=== PATIENT | female | born 1960 ===

== ENCOUNTER 2024-01-12 07:28 | Day surgery (SDC) | payer OTHER ==
[2024-01-04 08:11] LABS: URINE APPEARANCE Clear; URINE BILIRRUBIN Negative (NEGATIVE); URINE BLOOD Negative; URINE COLOR Yellow; URINE KETONE Negative (NEGATIVE); URINE LEUKOCYTE Negative; URINE NITRATE Negative; URINE PROTEIN Negative (NEGATIVE); URINE UROBILINOGEN 0.2 E.U./dl
[2024-01-04 08:13] LABS: URINE BACTERIA 143.6 uL (0.0-1933); URINE EPITHELIAL CELLS 5.2 uL (0.0-38.8); URINE RBC 3.5 uL (0.0-20.8); URINE WBC 6.6 uL (0.0-23.2)
[2024-01-04 08:13] LABS: HEMATOCRIT 42.3 % (36.0-45.00); HEMOGLOBIN 14.5 g/dL (12.0-15.00); MEAN CELL VOLUME 91.5 fL (80.00-100.00); MEAN CORPUSCULAR HEMOGLOBIN 31.3 pg (27.00-32.0); MEAN CORPUSCULAR HGB CONC 34.2 g/dl (32.0-36.0); PLATELET COUNT 149 K/uL (150-450); RED BLOOD COUNT 4.62 M/uL (4.00-6.00); RED CELL DISTRIBUTION WIDTH 14.9 % (11.5-14.5)
[2024-01-04 08:16] LABS: URINE GLUCOSE >=1000 MG/DL (NEGATIVE)
[2024-01-04 08:36] LABS: CALCIUM 10.3 mg/dL (8.5-10.1); CREATININE SERUM 0.9 mg/dL (0.55-1.02); GFR 62.84; POTASSIUM 4.01 mEq/L (3.5-5.1)
[2024-01-04 08:45] LABS: INR 1.01; PARTIAL THROMBOPLASTIN TIME 26.5 SECONDS (22.0-34.0); PROTHROMBIN TIME 10.6 SECONDS (9.0-11.5)
[~2024-01-12] VITALS: Ht 157.5 cm; Wt 90.7 kg
[~2024-01-12 07:28] MED LIST: DIETHYLPROPION25 MG PO; LEVO-T25 MCG PO; MOUNJARO2.5 MG/0.5; ONDANSETRON HCL4 MG PO; TELMISARTAN-HC1 EAC2 PO; ZETIA10 MG PO; ZOCOR40 MG PO
[2024-01-12] MEDS ORDERED: CEFAZOLIN SODIUM 1,000 MG VIAL ONE (10:24)
[2024-01-12] MEDS ORDERED: BUPIVACAINE HCL/MPF 0.5% 30ML VIAL ONE (10:24)
[2024-01-12] MEDS ORDERED: KETOROLAC TROMETHAMINE 30 MG VIAL ONE (10:26)
[2024-01-12] MEDS ORDERED: TYLENOL ARTHRI650 MG PO (10:39)
[2024-01-12] MEDS ORDERED: TRAMADOL HCL50 MG PO (10:39)
[2024-01-12] MEDS ORDERED: MIRALAX17 GM PO (10:39)
[2024-01-12] MEDS ORDERED: KETO10TA2 PO (10:39)
[2024-01-12] MEDS ORDERED: SUGAMMADEX SODIUM 200 MG/2 ML VIAL IV ONE (11:32)
[2024-01-12] MEDS ORDERED: GABAPENTIN100 M2 PO (13:05)
== END 2024-01-12 16:20 | disposition home or self-care (01) ==
LOC: CIR.AMB 07:28 → O/R 07:28 → SURH 07:28 → EDSTATUS 08:00 → O/R 16:20 → CIR.AMB 16:20
PROVIDERS: ATTEND Surgery
DX: K43.0 Incisional hernia with obstruction, without gangrene (principal)
CPT/HCPCS: 49594; C1781